=== PATIENT | female | born 1935 | race Caucasian/White ===

== ENCOUNTER 2018-07-25 13:39 | Emergency (ER) | payer SELFPAY ==
[~2018-07-25] VITALS: Ht 152.4 cm; Wt 68.0 kg
[2018-07-25 13:51] VITALS: BP_SYST 156
[2018-07-25] MEDS ORDERED: hydrALAZINE HCL 20 MG/ML VIAL IVP ONE (14:00)
[2018-07-25] MEDS ORDERED: MORPHINE 4 MG/ML INJ. SYRINGE IVP ONE (14:00)
[2018-07-25] MEDS ORDERED: NA PHOS,M-B/NA PHOS,DI-BA 118 ML (FLEET ENEMA) RC ONE (15:30)
[2018-07-25] MEDS ORDERED: LACTULOSE 20 GM/30 ML UDC PO ONE (15:30)
[2018-07-25 15:51] VITALS: BP_SYST 149
== END 2018-07-25 15:51 | disposition home or self-care (01) ==
LOC: SED 13:39
DX: M25.551 Pain in right hip (principal); K59.00 Constipation, unspecified; I10 Essential (primary) hypertension
CPT/HCPCS: 73502; 96374; 96375; 99283; J0360; J2270